=== PATIENT | male | born 1995 | race Caucasian/White ===

== ENCOUNTER 2023-12-25 00:45 | Emergency (ER) | payer SELFPAY ==
[~2023-12-25] VITALS: Ht 170.1 cm; Wt 68.0 kg
[2023-12-25] MEDS ORDERED: Acetaminophen/Oxycodone 5 MG/325 MG TABLET PO ONE (01:25)
[2023-12-25 01:33] LABS: BASO % 0.6 % (0.0-1.0); EOS # 0.2 10*3/uL (0.0-0.4); EOS % 3.7 % (1.0-4.0); HEMATOCRIT 39.2 % (42.0-52.0); LYMPH # 1.9 10*3/uL (1.3-4.4); LYMPH % 38.4 % (27.0-41.0); MEAN CELL VOLUME 85.2 fl (80.0-94.0); MEAN CORPUSCULAR HGB 29.1 pg (27.0-31.0); MEAN CORPUSCULAR HGB CONC 34.2 g/dl (33.0-37.0); MEAN PLATELET VOLUME 8.5 fl (9.6-12.3); MONO # 0.6 10*3/uL (0.1-1.0); MONO % 13.1 % (3.0-9.0); NEUT # 2.1 10*3/uL (2.3-7.9); PLATELET COUNT AUTOMATED 122 10*3/uL (130-400); RED CELL DISTRI WIDTH 13.6 % (0-14.5); WHITE BLOOD COUNT 4.8 10*3/uL (4.8-10.8)
[2023-12-25] MEDS ORDERED: IBUPROFEN 800 MG TAB PO ONE (01:35)
[2023-12-25 01:54] LABS: ALKALINE PHOSPHATASE 54 U/L (46-116); BUN 12 mg/dl (9-23); CHLORIDE 111 mmol/L (98-107); POTASSIUM 3.5 mmol/L (3.4-5.1); SGPT/ALT 19 U/L (5-49); TOTAL PROTEIN 6.5 gm/dL (6.0-8.0)
[2023-12-25] MEDS ORDERED: MELOXICAM15 MG PO (03:04)
== END 2023-12-25 03:07 | disposition home or self-care (01) ==
LOC: ED 00:45
PROVIDERS: Internal Medicine
DX: M94.0 Chondrocostal junction syndrome [Tietze] (principal); F90.9 Attention-deficit hyperactivity disorder, unspecified type

== ENCOUNTER 2024-04-23 10:22 | Emergency (ER) | payer SELFPAY ==
[~2024-04-23] VITALS: Ht 170.1 cm; Wt 65.8 kg
[~2024-04-23 10:22] MED LIST: MELOXICAM15 MG PO
[2024-04-23] MEDS ORDERED: Ondansetron Hydrochloride 4 MG TAB SL ONE (10:40)
[2024-04-23] MEDS ORDERED: AVPAK AZITHROM250 MG PO (12:21)
== END 2024-04-23 12:40 | disposition home or self-care (01) ==
LOC: ED 10:22
DX: J40 Bronchitis, not specified as acute or chronic (principal); Z20.822 Contact with and (suspected) exposure to COVID-19; F17.210 Nicotine dependence, cigarettes, uncomplicated

== ENCOUNTER 2025-03-11 16:27 | Emergency (ER) | payer SELFPAY ==
[~2025-03-11] VITALS: Wt 68.0 kg
[~2025-03-11 16:27] MED LIST changes: +AVPAK AZITHROM250 MG PO
[2025-03-11] MEDS ORDERED: Ondansetron4 MG PO (17:50)
== END 2025-03-11 18:17 | disposition home or self-care (01) ==
LOC: ED 16:27
DX: S01.01XA Laceration without foreign body of scalp, initial encounter (principal); W22.09XA Striking against other stationary object, initial encounter; Y93.89 Activity, other specified; Y92.89 Other specified places as the place of occurrence of the external cause; Y99.8 Other external cause status